=== PATIENT | female | born 1960 | race Caucasian/White ===

== ENCOUNTER 2018-11-26 13:23 | Outpatient (RCR) | payer BC | END 2019-02-24 | disposition home or self-care (01) | LOC: LAB FS 13:23 | PROVIDERS: ATTEND Family Medicine | DX: E34.9 Endocrine disorder, unspecified (principal); Z79.899 Other long term (current) drug therapy | CPT/HCPCS: 36415; 84270; 84402 ==

== ENCOUNTER → 2020-09-18 | Outpatient (CLI) | payer BC ==
[~2020-09-18] VITALS: Ht 160 cm; Wt 67.0 kg
[~2020-09-18] MED LIST: REGADENOSON 0.4 MG/5 ML SYR (LEXISCAN) IV ONE
[2020-09-18] MEDS: CATHETER FLUSH 10 ML SYR IV PRN ×2 (07:10→08:12)
[2020-09-18 08:10] VITALS: BP 146/84
--- NOTE | 2020-09-18 12:09 | Cardiology Stress Test Report ---
Stress Test Report Date of Procedure/Referring: Date of Procedure: Sep 18, 2020 PCP Anu Dumont,Dnp Admitting Physician Sergio Dumont DO Baseline Vital Signs Vital Signs Date Time Temp Pulse Resp B/P (MAP) Pulse Ox O2 Delivery O2 Flow Rate FiO2 09/18/20 08:10 60 16 146/84 (104) 98 Room Air Summary: Patient receive a resting and stress dose of Myoview, images were acquired and reviewed in the short axis view, horizontal long axis view and vertical long axis view. TID: 0.9 SSS: 1 SDS: 1 EF: 69 1. No significant ischemia or infarction on SPECT images 2. Normal left ventricular size, EF 69 percent NELSON ALANIS MD Sep 18, 2020 12:09
== END ==
LOC: CARD 06:48
PROVIDERS: ATTEND Nurse Practitioner Family
DX: I25.10 Atherosclerotic heart disease of native coronary artery without angina pectoris (principal)
CPT/HCPCS: 78452; 93017; A9502

== ENCOUNTER → 2020-11-15 | Outpatient (CLI) | payer BC ==
--- NOTE | 2020-11-15 12:24 | Diagnostic Imaging Report ---
INDICATION: Pain status post history of previous injury. COMPARISON: None. FINDINGS: 3 views of the right hand were obtained and show no fractures, dislocations, or other acute bony abnormalities. Joint spaces are well maintained throughout. The soft tissues appear unremarkable. No radiopaque foreign bodies are identified. IMPRESSION: Unremarkable radiographic exam of the right hand. Dictated by: Dictated on workstation # [id number]
== END ==
LOC: RAD 11:22
PROVIDERS: ATTEND Nurse Practitioner Family
DX: M79.644 Pain in right finger(s) (principal); Z79.01 Long term (current) use of anticoagulants
CPT/HCPCS: 73130

== ENCOUNTER → 2021-02-12 | Outpatient (CLI) | payer BC ==
[~2021-02-12] MED LIST changes: +CASIRIVIMAB/IMDEVIMAB 1,200 MG in NS (IVPB) 250 ML IV ONE; +EPINEPHrine INJECTION 1 MG/ML AMP IM PRN; -REGADENOSON 0.4 MG/5 ML SYR (LEXISCAN) IV ONE; +diphenhydrAMINE 50 MG/ML INJ (BENADRYL) IV PRN
[2021-02-12 12:13] VITALS: BP 130/63
[2021-02-12 13:43] VITALS: BP 123/40
== END ==
LOC: INFUSION 12:03
PROVIDERS: ATTEND Nurse Practitioner Family
DX: Z23 Encounter for immunization (principal); U07.1 COVID-19

== ENCOUNTER → 2021-08-21 | Outpatient (CLI) | payer BC ==
--- NOTE | 2021-08-21 17:47 | Diagnostic Imaging Report ---
INDICATION: Cyst on the left thumb as well as left thumb pain. TIME OF EXAM: 4:33 PM Three views of the left hand were obtained. Alignment is normal. The metacarpals and phalanges appear to be intact. No fractures are seen. Soft tissues are unremarkable. IMPRESSION: No acute abnormality is detected. Dictated by: Dictated on workstation # [id number]
== END ==
LOC: RAD 16:16
PROVIDERS: ATTEND Nurse Practitioner Family
DX: M85.642 Other cyst of bone, left hand (principal)
CPT/HCPCS: 73130